=== PATIENT | female | born 1970 | race Caucasian/White ===

== ENCOUNTER → 2018-07-18 23:22 | Outpatient (CLI) | payer SELFPAY ==
[2018-07-25 11:33] LABS: HPV Reflexed? NOT INDICATED
--- OUTSIDE RECORDS SUMMARY | 2018-09-03 23:05 | XMS RPT_ITS ---
:1970 Author Organization OHIP Care Team Providers Name Role Phone Nida Bryant Attending Unavailable Nida Bryant Referring Unavailable Nida Bryant Attending Unavailable STETLER, CHRISTOPHER SHERRI Referring Unavailable STETLER, CHRISTOPHER SHERRI Primary Care Unavailable Muna Ayala Attending Unavailable STETLER, CHRISTOPHER SHERRI Referring Unavailable STETLER, CHRISTOPHER SHERRI Primary Care Unavailable Ayala, Muna Attending Unavailable STETLER, CHRISTOPHER SHERRI Referring Unavailable STETLER, CHRISTOPHER SHERRI Primary Care Unavailable Ayala, Muna Attending Unavailable STETLER, CHRISTOPHER SHERRI Referring Unavailable STETLER, CHRISTOPHER SHERRI Primary Care Unavailable PROVIDER, UNKNOWN Admitting Unavailable PROVIDER, UNKNOWN Attending Unavailable PATIENT, SELF Referring Unavailable Stetler, Christopher R. Attending Unavailable Stetler, Christopher R. Attending Unavailable Stetler, Christopher R. Primary Care Unavailable PROBLEMS PROBLEMS DATE TYPE CONDITION / CODE ATTENDING STATUS SOURCE 07/20/2018 Unknown Z12.4 - Encounter Nida Bryant Active [facility] for screening for [facility] malignant [facility]oplasm [facility] of cervix / Repository Z12.4(ICD-10) 04/16/2018 Admitting Family history of Muna Ayala Active [facility] Diagnosis malignant neoplasm System of breast / Repository Z80.3(ICD-10) 04/16/2018 Admitting Diffuse cystic Muna Ayala Active [facility] Diagnosis mastopathy of left System breast / Repository N60.12(ICD-10) 01/15/2018 Admitting Unknown / Stetler, Active [facility] Medical diagnosis UNK(Unknown) Matt Arnold [place] Repository 09/22/2017 Admitting Mammographic uMna Ayala [facility] Diagnosis calcifcn found on System diagnostic imaging Repository of breast / R92.1(ICD-10) 09/07/2017 Admitting Ot abn and Nida Bryant [employer] Diagnosis inconclusive System findings on dx Repository imaging of breast / R92.8(ICD-10) 09/07/2017 Admitting Oth contact w and Nida Bryant [facility] Diagnosis (suspected) System exposures Repository hazardous to health / Z77.9(ICD-10) PROCEDURES PROCEDURES DATE CODE DESCRIPTION STATUS SOURCE 07/13/2018 XDX651(C4) ARTHRITIS SERVICE Completed [facility] [employer] RE[facility] Repository 07/13/2018 MPM195(C4) PM Completed [facility] [employer] [facility] Repository RESULTS RESULTS PAP I-G W/RFX HRHPV Collected: 07/18/2018 Status: F Source: [facility] 3:45 PM [facility] [place] Order Comment: CYTOLOGY INFORMATION: - CLINICAL INFORMATION: - DATE LMP/MENOPAUSE: 06/27/18 LMP - COLLECTION VIAL: Thin Prep Vial - BREAD PANNER SOURCE: CERVICAL/ENDOCERVICAL - COLLECTION TECHNIQUE: BRUSH/SPATULA Specimen Comment: [id number] Specimen Comment: Source.............Cervix;Endocervix Specimen Comment: LMP / Prev Treat...MVU=[id number] Specimen Comment: No. of containers..01 ThinPrep Vial TYPE CODE TESTS RESULT OUT OF RANGE REFERENCE UNITS LAB L7400.0800 . Normal DIAGN Comment Result Comment: NEGATIVE FOR INTRAEPITHELIAL LESION AND MALIGNANCY. THIS SPECIMEN WAS RESCREENED PART OF OUR MAINFRAME SYSTEMS PROGRAMMER PROGRAM. LAB L7400.0900 . Normal ADEQ Comment Result Comment: Satisfactory for evaluation. Endocervical and/or squamous metaplastic cells (endocervical component) are present. LAB L7400.1400 . Normal PERFORM Comment Result Comment: Dominic Modi, Certified Art Therapist (ASCP) LAB L7400.1500 . Normal QC Comment REV Result Comment: Geneva Welch, Certified Art Therapist (ASCP) LAB L7400.2575 . Normal TEST METHOD Comment Result Comment: This liquid based ThinPrep(R) pap test was screened with the use of an image guided system. LAB L7400.2600 . Normal . COMM LAB L7400.2700 . Normal PAPSMR Comment Result Comment: The Pap smear is a screening test designed to aid in the detection of premalignant and malignant conditions of the uterine cervix. It is not a diagnostic procedure and should not be used as the sole means of detecting cervical cancer. Both false-positive and false-negative reports do occur. LAB L7400.2800 . Normal HPV RFLX Comment Result Comment: The HPV DNA reflex criteria were not met with this specimen result therefore, no HPV testing was performed. Performed at: - [facility] [id number] Lead Based Paint Technician: Mariposa Blackmon MD, Phone: [phone] Performed By: #### L7400.0350 #### [facility] (refer to report for specific site) refer to report for address and phone number MG BREAST TOMOSYNTHESIS Observed: 04/16/2018 Status: F Source: [facility] DIAGNOSTIC LEFT 12:00 AM SYSTEM REPOSITORY Patient Name: FARHAT LUND Mammography Exam Date/Time 04/16/2018 08:01:28 EDT Exam MG Breast Tomosynthesis Left Ordering Physician MD MAUDE, MUNA Pollack Accession Number [id number] CPT4 Codes 37186 (MG Breast Tomosynthesis Left), 60618 (MG MAMMO 2D DIAGNOSTIC) Reason For Exam Diffuse cystic mastopathy of left breast Report PATIENT HISTORY: Patient is nulliparous. Family history of breast cancer at age 80 in maternal grandmother. Benign biopsy of the left breast, September 22, 2017. Taking hormonal contraceptives beginning at age 16. Patient has never smoked. Patient's BMI is 27.4. TIME SINCE LAST MAMMOGRAM: Last mammogram was performed 8 months ago. REASON FOR EXAM: history of benign breast biopsy. PROCEDURE: MG BREAST TOMOSYNTHESIS LEFT: 2017 - 2D/3D Procedure 3D views: CC and MLO view(s) were taken of the left breast. 2D views: CC, MLO, and spot compression CC with magnification view(s) were taken of the left breast. Prior study comparison: September 07, 2017, MG mammogram digital diagnostic left performed at [facility]. August 22, 2017, bilateral MG mammogram digital screening performed at [facility]. TISSUE DENSITY: The breast tissue is heterogeneously dense, which could obscure underlying abnormalities. FINDINGS: This is a 47-year-old who presents after a benign left breast stereotactic guided biopsy performed 09/22/2017 demonstrated pathology compatible with fibrocystic change and duct ectasia. The last bilateral mammogram was performed 08/22/2017. DIAGNOSTIC LEFT BREAST MAMMOGRAM: A postbiopsy tissue marker is present in the superior lateral quadrant of the left breast at posterior depth at the site of benign biopsy. No residual calcifications are present. A residual postbiopsy hematoma is present which has decreased compared to the date of biopsy. Markings on images: BB's = Nipples; skin lesions Open [place] = Palpable Line = Scar 2D digital mammography and tomosynthesis imaging were performed and reviewed with CAD. ASSESSMENT: Category 2 Benign No mammographic evidence of malignancy in the left breast. RECOMMENDATION: Return to routine screening mammogram schedule for both breasts. Report Dictated on Final Signed Date and Time: 04/16/2018 8:16 am Signed by: MD RUEDA JENNIFER R MRI LUMBAR SP W/O Observed: 01/25/2018 Status: F Source: [facility] [employer] CONTRAST 3:25 PM [facility] MRI LUMBAR SP W/O CONTRAST Ordering Physician: Matt Olguin, 01/25/2018 3:30 PM LUMBAR SPINE MRI INTRAVENOUS CONTRAST Comparison: Radiographs 01/15/2018 Clinical Statement: Back pain. Pain radiating to the left lower extremity. TECHNIQUE: Multiplanar multisequence unenhanced lumbar spine MRI is performed. FINDINGS: There is straightening of the lumbar spine. No acute compression fracture. No worrisome MR signal alteration. There is multilevel degenerative spondylosis manifest by disk desiccation, broad-based bulges and bilateral facet and ligamentous hypertrophy, resulting in: L5-S1: Mild flattening of the ventral thecal sac. Mild right-sided foraminal narrowing. L4-5: There are mild endplate marrow degenerative signal changes. There is mild circumferential degenerative flattening of the thecal sac. No right-sided foraminal narrowing. Mild left foraminal narrowing extending laterally. L3-4: There is superimposed central and right paracentral disk protrusion which extends superiorly, behind the L3 vertebral body.. There is mild to moderate flattening of the ventral thecal sac more prominent on the right. There is small associated annular tear. Mild bilateral foraminal narrowing. L2-3: Broad-based annular bulge, eccentrically more prominent on the right there is mild to moderate flattening of the ventral thecal sac more prominent on the right. There is bilateral foraminal narrowing right greater than left. There is mild enlargement of the exiting right L2 nerve sleeve extraforaminal the compared to the left. L1-2: No central canal or foraminal stenosis. Conus medullaris terminating at T12-L1 demonstrates normal signal, caliber and contour. No acute paraspinal soft tissue findings. IMPRESSION: 1. Multilevel degenerative disk disease. There is central and right paracentral disk protrusion at L3-4. 2. Degenerative disk at L2-3: Eccentric the more prominent on the right resulting in mild mass effect upon the exiting right L2 nerve root sleeve which appears enlarged and edematous. ---- Electronic Signature on File ---- Signed By: John Lamb MD [email or web address] Dictated: 01/25/2018 4:23 PM Signed: 01/25/2018 4:33 PM Reported By: JOHN LAMB M.D. Signed By: JOHN LAMB M.D. LUMBAR SPINE 2 OR 3 Observed: 01/15/2018 Status: F Source: [facility] 7:56 AM [facility] LUMBAR SPINE 2 OR 3 VWS Ordering Physician: Matt Olguin DO 01/15/2018 7:59 AM LUMBAR SPINE THREE VIEWS: Clinical Statement: Lumbar back pain with radiculopathy Comparison: None FINDINGS: There are five lumbar-type vertebra. There is significant disk space narrowing at the L4-5 level a lesser narrowing at the L3-4 level. There is straightening of the lumbar spine. No spondylolisthesis. There is slight right-sided lateral shift of L4 with respect to L5 with degenerative spurring along the left side endplates. The SI joints are symmetric and intact. IMPRESSION: Straightening of the lumbar spine which could be secondary to positioning or muscular spasm. Degenerative disk disease greatest at the L4-5 level with degenerative endplate spurring. ---- Electronic Signature on File ---- Signed By: Rhett Quinteros MD PhD [email or web address] Dictated: 01/15/2018 8:34 AM Signed: 01/15/2018 8:36 AM Reported By: RHETT QUINTEROS M.D. Signed By: RHETT QUINTEROS M.D. MG BX BREAST 1ST Observed: 09/22/2017 Status: F Source: [facility] LESION STRTCTC LT 12:00 AM SYSTEM REPOSITORY Patient Name: FARHAT LUND Mammography Exam Date/Time 09/22/2017 13:57:09 EST Exam MG BX Breast 1st Lesion Strtctc LT Ordering Physician MD MAUDE, MUNA Pollack Accession Number [id number] CPT4 Codes 63074 () Reason For Exam Abnormal mammogram Report PROCEDURE: MG BX BREAST 1ST LESION STRTCTC LT: LEFT BREAST - SEPTEMBER 22, 2017 - Assisted by: Darío Freitas, Area Counselor REASON FOR EXAMINATION: Collection of microcalcifications in the left upper outer quadrant CONSENT: The patient presents for stereotactic localization and biopsy for the left breast. Prior to the procedure red rules were performed which included patient name, date of , and procedure type. Risks, benefits and alternatives were explained to the patient and informed consent was obtained. The patient?s prior imaging dated 09/07/2017 and prior was reviewed. PROCEDURE: I washed my hands and wore sterile gloves. The patient was sitting upright and calcifications were localized from a craniocaudal approach. The patient was prepped in the usual sterile fashion. 20 mL of 1% Lidocaine was administered for local anesthesia. A 9- gauge Eviva vacuum assisted device was advanced to the targeted calcifications with stereotactic guidance. 12 core specimens were obtained. Following the procedure a Securmark tissue marker was deployed at the site of biopsy. Hemostasis was obtained by holding manual pressure. A specimen radiograph demonstrates the microcalcifications within the specimen. The patient tolerated the procedure without immediate complications. Home-going instructions were given and the patient was discharged in good condition. Following the procedure a postprocedure 2D digital mammogram was performed in the lateral and CC projections demonstrating the tissue marker at the site of biopsy. IMPRESSION: Technically successful stereotactic biopsy of the left breast. PATHOLOGY RESULTS: BENIGN Benign fibrocystic change. Calcifications are present in the biopsy. The pathology findings are concordant with the imaging findings. SURGICAL SPECIMEN: LEFT BREAST - SEPTEMBER 22, 2017 - RECOMMENDATION: Follow-up diagnostic mammogram in 6 months. Notification was made to the office of Dr. Ayala at 3PM on 09/27/17. Final Signed Date and Time: 09/27/2017 2:59 pm Signed by: MD ACE JEFFREY SURGICAL-SPECIMEN Observed: 09/22/2017 Status: F Source: [facility] 12:00 AM SYSTEM REPOSITORY Patient Name: FARHAT LUND Mammography Exam Date/Time 09/22/2017 13:56:30 EST Exam Surgical-Specimen Ordering Physician MD MAUDE, MUNA Pollack Accession Number [id number] CPT4 Codes 93528 () Reason For Exam Abnormal mammogram Report PROCEDURE: MG BX BREAST 1ST LESION STRTCTC LT: LEFT BREAST - SEPTEMBER 22, 2017 - Assisted by: Darío Freitas, Area Counselor REASON FOR EXAMINATION: Collection of microcalcifications in the left upper outer quadrant CONSENT: The patient presents for stereotactic localization and biopsy for the left breast. Prior to the procedure red rules were performed which included patient name, date of , and procedure type. Risks, benefits and alternatives were explained to the patient and informed consent was obtained. The patient?s prior imaging dated 09/07/2017 and prior was reviewed. PROCEDURE: I washed my hands and wore sterile gloves. The patient was sitting upright and calcifications were localized from a craniocaudal approach. The patient was prepped in the usual sterile fashion. 20 mL of 1% Lidocaine was administered for local anesthesia. A 9- gauge Eviva vacuum assisted device was advanced to the targeted calcifications with stereotactic guidance. 12 core specimens were obtained. Following the procedure a Securmark tissue marker was deployed at the site of biopsy. Hemostasis was obtained by holding manual pressure. A specimen radiograph demonstrates the microcalcifications within the specimen. The patient tolerated the procedure without immediate complications. Home-going instructions were given and the patient was discharged in good condition. Following the procedure a postprocedure 2D digital mammogram was performed in the lateral and CC projections demonstrating the tissue marker at the site of biopsy. IMPRESSION: Technically successful stereotactic biopsy of the left breast. PATHOLOGY RESULTS: BENIGN Benign fibrocystic change. Calcifications are present in the biopsy. The pathology findings are concordant with the imaging findings. MG SURGICAL SPECIMEN: LEFT BREAST - SEPTEMBER 22, 2017 - RECOMMENDATION: Follow-up diagnostic mammogram in 6 months. Notification was made to the office of Dr. Ayala at 3PM on 09/27/17. Final Signed Date and Time: 09/27/2017 2:59 pm Signed by: MD ACE JEFFREY MG MAMMOGRAM DIGITAL Observed: 09/07/2017 Status: F Source: [facility] DIAGNOSTIC LEFT 12:00 AM SYSTEM REPOSITORY Patient Name: FARHAT LUND Mammography Exam Date/Time 09/07/2017 09:08:02 EST Exam MG Mammogram Digital Diagnostic Left Ordering Physician MD BRYANT ANNE M Accession Number [id number] CPT4 Codes 43169 () Reason For Exam abnormal mammogram Report PATIENT HISTORY: Patient is nulliparous. Family history of breast cancer at age 80 in maternal grandmother. Taking hormonal contraceptives beginning at age 16. Patient has never smoked. Patient's BMI is 27.4. TIME SINCE LAST MAMMOGRAM: Last mammogram was performed 1 month ago. REASON FOR EXAM: addl evaluation requested from abnormal screening. PROCEDURE: MG MAMMOGRAM DIGITAL DIAGNOSTIC LEFT: SEPTEMBER 07, 2017 - Spot compression CC with magnification, spot compression ML with magnification, and ML view(s) were taken of the left breast. Prior study comparison: August 22, 2017, bilateral MG mammogram digital screening performed at [facility]. May 04, 2016, bilateral MG mammogram digital screening performed at [facility]. The breast tissue is heterogeneously dense, which could obscure underlying abnormalities. 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 DIAGNOSTIC LEFT BREAST MAMMOGRAM: Grouped calcifications are present within the superior lateral aspect of the left breast at middle to posterior depth. No similar appearing calcifications are present within either breast on the screening exam. The calcifications are new compared to 2016 imaging. The calcifications span approximately 0.7 cm. The calcifications are considered indeterminate as they are new and no similar appearing calcifications are present. Stereotactic guided biopsy is recommended. The asymmetry within the superior aspect of the left breast at middle depth disperses into overlapping glandular tissue with no underlying mass appreciated. DISCUSSION: I discussed the findings and recommendations with the patient. Felicia, our nurse navigator, discussed the findings and recommendations with the patient. Felicia spoke with Candida at the ordering clinician's office at 9:07am on 09/07/2017 and provided the findings and recommendations. The patient will follow with Dr. Ayala. Markings on images: BB's = Nipples; skin lesions Open [place] = Palpable Line = Scar 2D digital mammography imaging was performed and reviewed with CAD. ASSESSMENT: Category 4 Suspicious Indeterminate left breast calcifications. RECOMMENDATION: Stereotactic core biopsy and surgical consultation of the left breast. Final Signed Date and Time: 09/07/2017 9:51 am Signed by: MD MOHIT, ROSALIND Monroy ALLERGIES ALLERGIES DATE TYPE / CODE NAME / CODE REACTION SEVERITY SOURCE 09/07/2017 DRUG CEPHALEXIN RASH Mild The [facility] INGREDI/419 (Qualifier System Repository 218763(SNOM Value) ED CT) 10/13/2016 DRUG AMOXICILLIN HIVES~RASH Mild The [facility] INGREDI/419 (Qualifier System Repository 192493(SNOM Value) ED CT) ENCOUNTERS ENCOUNTERS ADMIT/DISCHARGE ACCOUNT NUMBER ADMITTING ENCOUNTER LOCATION SOURCE CLASS 07/18/2018 [id number] Ambulatory [facility] ding:[facility] Repository 07/13/2018/07/13/20 [id number] [facility] Repository 04/16/2018 [id number] Ambulatory [facility] Repository 03/15/2018 [id number] Ambulatory [facility] Repository 01/25/2018 [id number] Ambulatory [facility] Repository ng:ROBERT 01/15/2018 [id number] [facility] ng:H.LKX 09/22/2017 [id number] Ambulatory [facility] System Repository 09/07/2017 [id number] Ambulatory [facility] Repository PAYERS PAYERS ENCOUNTER GUARANTOR PAYER SUBSCRIBER SOURCE 07/18/2018 FARHAT Primary Insurance:SELF NOT GIVENUNK [id number] Number: Effective [facility], Date:2018-07-18 [place]ository [place] [address]Ahj: (HP) 07/13/2018 FARHAT J Primary [facility] ROGACHEFSKYDOB Insurance:AMBETTER ROGACHEFSKYDOB: System : [facility] [id number] [facility] Number: [place] [id number]: (330) [facility] [id number] [phone] () [place] [address]Jyu: Date:2018-06-14 (HP) 04/16/2018 [facility] RogachefskyDOB Insurance:[employer] RogachefskyDOB: System : y Number: Effective [id number] Repository Date: [place], [place] [address]Isw: () 03/15/2018 [facility] RogachefskyDOB Insurance:[employer] RogachefskyDOB: System : y Number: Effective [id number] Repository Date: [place], [place] [address]Ogx: () 01/25/2018 FARHAT J Primary FARHAT [facility] [id number] Insurance:[facility] [place] [address]Vmo: Number: [id number] (HP) Date:[id number] [address]EV: 01/15/2018 [facility] [id number] [facility] [place] [address]Byk: Number: [id number] (HP) Date:[id number] [address]KF: 09/22/2017 [facility] RogachefskyDOB Insurance:[facility] RogachefskyDOB: System : y Number: Effective [id number] Date[facility] [place], [place] [address]Rww: () 09/07/2017 [facility] RogachefskyDOB Insurance:[facility] RogachefskyDOB: System : y Number: Effective [id number] Date: [place], [place] [address]Ryh: ()
== END ==
PROVIDERS: Referring Provider Obstetrics & Gynecology; Visit Provider Obstetrics & Gynecology
DX: Z12.4 Encounter for screening for malignant neoplasm of cervix (principal)
CPT/HCPCS: 88175; G0145